=== PATIENT | female | born 1980 | race Two or more races ===

== ENCOUNTER 2016-11-27 21:32 | Emergency (ER) | payer OTHER ==
[2016-11-27 21:47] VITALS: BP 115/77; PULSE 73; TEMP 98.5; BMI 23.0
[2016-11-27] MEDS ORDERED: SODIUM CHLORIDE 1,000 ML IV STA (22:13)
--- NOTE | 2016-11-27 22:13 | PDOC ---
History of Present Illness - General History Source: Patient Exam Limitations: No Limitations - History of Present Illness Initial Comments: 11/27/16 22:48 Patient is a 36 year old female ,10 weeks , with no significant past medical history who presents to the ED with abdominal pain and nausea. Patient reports having nausea for 4 weeks but denies vomiting and abdominal pain for 4 days that is sharp in nature localized to the epigastric area radiating to the back. Patient notes that she has been running a low grade fever at home 99-100.4. She also reports diffuse body aches. 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 <Sumaya Nation - Last Filed: 11/28/16 00:02> <Rosalba Reeder - Last Filed: 11/28/16 00:13> - General Chief Complaint: Pain, Acute Stated Complaint: ABD PAIN 10WKS PREG Time Seen by Provider: 11/27/16 21:57 Past History <Sumaya Nation - Last Filed: 11/28/16 00:02> - Past Medical History Asthma: No Cancer: No Cardiac Disorders: No Diabetes: No HTN: No Seizures: No Thyroid Disease: No Other medical history: denies - Psycho/Social/Smoking Cessation Hx Suicidal Ideation: No Smoking History: Never smoked Have you smoked in the past 12 months: No Hx Alcohol Use: No Drug/Substance Use Hx: No Hx Substance Use Treatment: No <Rosalba Reeder - Last Filed: 11/28/16 00:13> - Past Medical History Allergies/Adverse Reactions: Allergies Allergy/AdvReac Type Severity Reaction Status Date / Time No Known Allergies Allergy Verified 11/27/16 21:44 Home Medications: Ambulatory Orders Metronidazole 0.75% Vag. Gel [Metrogel 0.75% *Vaginal Gel* -] 1 applic VG HS Review of Systems - Review of Systems Able to Perform ROS?: Yes Comments:: 11/27/16 22:48 CONSTITUTIONAL: Absent: fever, chills, diaphoresis, generalized weakness, malaise, loss of appetite HEENT: Absent: rhinorrhea, nasal congestion, throat pain, throat swelling, difficulty swallowing, mouth swelling, ear pain, eye pain, visual Changes CARDIOVASCULAR: Absent: chest pain, syncope, palpitations, irregular heart rate, lightheadedness , peripheral edema RESPIRATORY: Absent: cough, shortness of breath, dyspnea with exertion, orthopnea, wheezing, stridor, hemoptysis GASTROINTESTINAL: Present: abdominal pain, nausea Absent: abdominal distension, vomiting, diarrhea, constipation, melena, hematochezia GENITOURINARY: Absent: dysuria, frequency, urgency, hesitancy, hematuria, flank pain, genital pain MUSCULOSKELETAL: Absent: myalgia, arthralgia, joint swelling SKIN: Absent: rash, itching, pallor HEMATOLOGIC/IMMUNOLOGIC: Absent: easy bleeding, easy bruising, lymphadenopathy, frequent infections ENDOCRINE: Absent: unexplained weight gain, unexplained weight loss, heat intolerance, cold intolerance NEUROLOGIC: Absent: headache, focal weakness or paresthesias, dizziness, unsteady gait, seizure, mental status changes, bladder or bowel incontinence PSYCHIATRIC: Absent: anxiety, depression, suicidal or homicidal ideation, hallucinations. <Sumaya Nation - Last Filed: 11/28/16 00:02> *Physical Exam - Vital Signs Last Vital Signs Temp Pulse Resp BP Pulse Ox 98.5 F 73 18 115/77 99 11/27/16 21:45 11/27/16 21:45 11/27/16 21:45 11/27/16 21:45 11/27/16 21:45 - Physical Exam Comments: 11/27/16 22:50 GENERAL: Well developed, well nourished. Awake and alert. No acute distress. HEENT: Normocephalic, atraumatic. PERRLA, EOMI. No conjunctival pallor. Sclera are non- icteric. Moist mucous membranes. Oropharynx is clear. NECK: Supple. Full ROM. No JVD. Carotid pulses 2+ and symmetric, without bruits. No thyromegaly. No lymphadenopathy. CARDIOVASCULAR: Regular rate and rhythm. No murmurs, rubs, or gallops. Distal pulses are 2+ and symmetric. PULMONARY: No evidence of respiratory distress. Lungs clear to auscultation bilaterally. No wheezing, rales or rhonchi. ABDOMINAL: +Epigastric tenderness upon deep palpation. Soft. Non-distended. No rebound or guarding. No organomegaly. Normoactive bowel sounds. MUSCULOSKELETAL Normal range of motion at all joints. No bony deformities or tenderness. No CVA tenderness. EXTREMITIES: No cyanosis. No clubbing. No edema. No calf tenderness. SKIN: Warm and dry. Normal capillary refill. No rashes. No jaundice. NEUROLOGICAL: Alert, awake, appropriate. Cranial nerves 2-12 intact. No deficits to light touch and temperature in face, upper extremities and lower extremities. No motor deficits in the in face, upper extremities and lower extremities. Normoreflexic in the upper and lower extremities. Normal speech. Toes are down-going bilaterally. Gait is normal without ataxia. PSYCHIATRIC: Cooperative. Good eye contact. Appropriate mood and affect. <Sumaya Nation - Last Filed: 11/28/16 00:02> - Vital Signs Last Vital Signs Temp Pulse Resp BP Pulse Ox 98.5 F 73 18 115/77 99 11/27/16 21:45 11/27/16 21:45 11/27/16 21:45 11/27/16 21:45 11/27/16 21:45 <Rosalba Reeder - Last Filed: 11/28/16 00:13> ED Treatment Course - LABORATORY CBC & Chemistry Diagram: 11/27/16 22:50 11/27/16 22:50 - ADDITIONAL ORDERS Additional order review: Laboratory Results 11/27/16 22:31 Urine Color Myriam Urine Appearance Clear Urine pH 5.0 Ur Specific [place] 1.027 Urine Protein Negative Urine Glucose (UA) Negative Urine Ketones 1+ H Urine Blood Negative Urine Nitrite Negative Urine Bilirubin Negative Urine Urobilinogen 4.0 e.u/dl H Ur Leukocyte Esterase Negative - RADIOLOGY Radiology Studies Ordered: 11/28/16 00:02 EXAM: Ultrasound abdomen limited, right upper quadrant and limited abdominal duplex FINDINGS: Right upper quadrant ultrasound: The liver is normal, without mass or biliary duct dilation. The gallbladder is normal. The CBD is not dilated and measures 4 millimeters in diameter. Right kidney measures 10.0centimeters in length and is unremarkable. The visualized aorta and IVC are normal. Pancreas is partially obscured, but appears normal. Live IUP is noted with heart rate of 154 beats per minute. Abdominal duplex: The main portal vein demonstrates normal hepatopedal flow. IMPRESSION: Normal exam. <Sumaya Nation - Last Filed: 11/28/16 00:02> - LABORATORY CBC & Chemistry Diagram: 11/27/16 22:50 11/27/16 22:50 <Rosalba Reeder - Last Filed: 11/28/16 00:13> *DC/Admit/Observation/Transfer - Attestations Scribe Attestion: 11/27/16 22:57 Documentation prepared by ADOLFO Park, acting as medical biller coder for Rosalba Reeder MD. 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
[2016-11-27] MEDS ORDERED: ONDANSETRON 4 MG/2 ML VIAL IVPUSH ONE (22:29)
[2016-11-27 22:44] LABS: URINE APPEARANCE CLEAR; URINE BILIRUBIN NEGATIVE (NEGATIVE); URINE BLOOD NEGATIVE (NEGATIVE); URINE COLOR AMBER; URINE GLUCOSE (UA) NEGATIVE (NEGATIVE); URINE KETONE 1+ (NEGATIVE); URINE LEUK ESTERASE NEGATIVE (NEGATIVE); URINE NITRITE NEGATIVE (NEGATIVE); URINE PROTEIN NEGATIVE (NEGATIVE); URINE UROBILINOGEN 4.0 E.U/dl E.U./dl (0.2-1.0)
[2016-11-27] MEDS ORDERED: ONDANSETRON 4 MG/2 ML VIAL ONE (22:45)
[2016-11-27 23:14] LABS: BASOPHIL 1.2 % (0-2.0); EOSINOPHIL 0.5 % (0-4.5); MCH 29.9 pg (25.7-33.7); MCHC 34.4 g/dl (32.0-36.0); MEAN CELL VOLUME 86.9 fl (80-96); MEAN PLT VOLUME 7.9 fl (7.5-11.1); PLATELET COUNT 246 K/MM3 (134-434); WHITE BLOOD COUNT 6.1 K/mm3 (4.0-10.0)
[2016-11-27 23:38] LABS: ALBUMIN 4.1 g/dl (3.4-5.0); ANION GAP 11 (8-16); BILIRUBIN,TOTAL 0.5 mg/dL (0.2-1.0); CALCIUM 9.7 mg/dL (8.5-10.1); CO2 26 mmol/L (21-32); CREATININE 0.7 mg/dL (0.55-1.02); GLUCOSE,RANDOM 90 mg/dL (74-106); SGOT/AST 15 U/L (15-37); SGPT/ALT 28 U/L (12-78); TOT PROT 7.8 g/dl (6.4-8.2)
[2016-11-27 23:39] LABS: ALK PHOS 47 U/L (45-117)
== END 2016-11-28 00:20 | disposition home or self-care (01) ==
LOC: JER 21:32
PROC: 3E0337Z Introduction of Electrolytic and Water Balance Substance into Peripheral Vein, Percutaneous Approach (ICD-10-PCS; principal; 2016-11-27)
PROC: 3E033GC Introduction of Other Therapeutic Substance into Peripheral Vein, Percutaneous Approach (ICD-10-PCS; 2016-11-27)
DX: O26.891 Other specified pregnancy related conditions, first trimester (principal); R10.13 Epigastric pain; Z3A.10 10 weeks gestation of pregnancy
CPT/HCPCS: 36415; 76705-TC; 80053; 81003; 82150; 83690; 84702; 85025; 96361; 96374; 99282-25